=== PATIENT | female | born 1950 | race Caucasian/White ===

== ENCOUNTER 2016-10-26 05:44 | Day surgery (SDC) | payer MEDICARE ==
[2016-10-26] MEDS ORDERED: CEFAZOLIN SODIUM 2 GRAM PREMIX 100 ML IV PRN (05:45)
[2016-10-26] MEDS ORDERED: CEFAZOLIN SODIUM 2 GRAM PREMIX 100 ML IV ONE (06:03)
[2016-10-26] MEDS ORDERED: BUPIVACAINE 0.5% W/EPI SDV 30 ML VIAL ONE (06:31)
[2016-10-26] MEDS ORDERED: MIDAZOLAM HCL 1 MG/ML 2ML VIAL ONE (06:43)
[2016-10-26] MEDS ORDERED: FENTANYL 100 MCG/2 ML VIAL ONE ×2 (06:43→08:17)
[2016-10-26] MEDS ORDERED: PROPOFOL 20 ML IV ONE (06:47)
[2016-10-26] MEDS ORDERED: ONDANSETRON 4 MG/2ML 2 ML VIAL IV PRN ×2 (07:31→09:03)
[2016-10-26] MEDS ORDERED: NALOXONE HCL 0.4 MG/ML VIAL IV PRN (07:31)
[2016-10-26] MEDS ORDERED: PROMETHAZINE HCL 25 MG/ML VIAL IM PRN (07:31)
[2016-10-26] MEDS ORDERED: ATROPINE SULFATE 0.4 MG/1 ML VIAL IV PRN (07:31)
[2016-10-26] MEDS ORDERED: LACTATED RINGERS 1,000 ML IV SCH ×2 (07:45→09:03)
[2016-10-26] MEDS ORDERED: KETAMINE HCL UD SYRINGE 100 MG/2 ML IV ONE (07:51)
[2016-10-26] MEDS ORDERED: DEXAMETHASONE SOD PHOS 4 MG/1 ML VIAL ONE (07:51)
[2016-10-26] MEDS ORDERED: ONDANSETRON 4 MG/2ML 2 ML VIAL ONE ×2 (07:51→09:25)
[2016-10-26] MEDS ORDERED: KETOROLAC TROMETHAMINE 30 MG/ML 1 ML VIAL ONE (08:05)
[2016-10-26] MEDS: FENTANYL 100 MCG/2 ML VIAL IV PRN ×2 (08:18→08:24)
--- NOTE | 2016-10-26 08:21 | PCMBPN ---
Brief Post Op Note: Date of Procedure: 10/26/16 Start Time: 729 Preoperative Diagnosis: 1. Left Knee MMT Postoperative Diagnosis: 1. Left Knee MMT, Medial Femoral Condyle Grade 3 Chondromalacia Procedure: Left Knee Arthroscopy/PMM/Shaving Chondroplasty of Medial Femoral Condyle Surgeon: Perico Wagner MD Assist:MAGGIE Ramirez Anesthesia: Jluis Roberts CRNA Findings: See above Condition: Stable Complications: none IV Fluids: 700 mLs of LR Urine Output: 0 mLs Estimated Blood Loss: 5 mLs Tourniquet Time: 19min at 250mmHg Specimens: N/A Implants: None Drains: [N/A]
[2016-10-26] MEDS ORDERED: MORPHINE SULFATE 4 MG/ML SYRINGE ONE ×2 (08:33→08:50)
[2016-10-26] MEDS: MORPHINE SULFATE 4 MG/ML SYRINGE IV PRN ×4 (08:34→09:00)
--- NOTE | 2016-10-26 08:58 | HP ---
DATE OF CLINIC: 10/21/2016 FRANKLIN PACK : 1950 PLANNED PROCEDURE: Left Knee Arthroscopic Partial Medial Menisectomy DATE OF SURGERY: October 26, 2016 SURGEON: Perico Wagner M.D. HISTORY OF PRESENT ILLNESS Franklin Pack is a 66 year old female. * Medication list reviewed with patient allergy list reviewed with patient. 66-year-old female who is here to discuss left knee dysfunction that has been going on for over a year. She has pain over the medial side of her knee and mechanical symptoms whenever she is more active. She has been through a course of non-operative measures and hasn't found adequate relief. She has been seen by Dr. Merritt prior to this. At this point she complains primarily of anteromedial knee pain as well as some posteromedial knee pain when she goes into maximal flexion and difficulty with completing her desired activities. Past medical and surgical history are unchanged. After discussion and review of treatment options, both operative and non-operative, she has elected to proceed with surgery and presents today preoperatively. CURRENT MEDICATION * ALPRAZolam 0.5 MG Tablet take 1/2 to 1 tab daily as needed for anxiety, 30 days, 0 refills * Aspirin 81 MG Tablet Delayed Release 1 once a day 0 days, 0 refills * Calcium Antacid Extra Strength 750 MG Tablet Chewable 1 once a day 0 days, 0 refills * [facility] Glucosamine 1500 MG Tablet 1 once a day 0 days, 0 refills * [facility] Naproxen Sodium 220 MG Tablet 1 once a day 0 days, 0 refills * [facility] Vitamin D3 1000 UNIT Capsule 1 once a day 0 days, 0 refills * Fish Oil 1000 MG Capsule 1 once a day 0 days, 0 refills * Ibuprofen PM 200-38 MG Tablet as needed 0 days, 0 refills * Loratadine 10 MG Capsule 1 once a day 0 days, 0 refills * Montelukast Sodium Powder as directed 0 days, 0 refills * Multi Vitamin Tablet 1 once a day 0 days, 0 refills * Singulair 10 MG Tablet 1 once a day, 30 days, 5 refills PAST MEDICAL/SURGICAL HISTORY Reported: No recent change in medical history. Medical: Stomach problems, a fracture Left ankle fx, Reported numbness, Reported tingling, history of Arthritis, Depression, Anemia, and Rheumatoid Arthritis. Surgical / Procedural: Prior surgery Uterine Fibroid 1997, 2004, Appendectomy 1960?1964?, and Tonsilectomy 1951. Physical Trauma: A fall. Uterine fibroids removed 1998+2004? bartholin cyst removed 1997? 1989?. Surgical: * Tonsillectomy 1951 * Appendectomy 1959 SOCIAL HISTORY Behavioral: Daily coffee consumption 3 cups daily, former smoker quit 1992, and non-smoker quit smoking 1989 smoked 1 pack per day for 20 yrs. Smoking status: Former smoker. Alcohol: Alcohol 1 glass of wine daily and alcohol use. Home Environment: Lives with spouse and with and caring for family household member with alzheimers. Work: Occupation Retired. ALLERGIES * EPINEPHrine Reaction: makes heart race causes panic * Insect Bites/Stings * Minoxidil Reaction: Skin Rashes/Hives * Oxycodone (Intolerance) Reaction: Nausea/Vomiting/Diarrhea FAMILY HISTORY Father ill heart disease, cancer, diabetes Paternal: Acute myocardial infarction Diabetes mellitus Alcoholism Cancer liver, lung, colon Maternal: Alcoholism Cancer breast Family medical history Mother- Cancer Father- Diabetes, Cancer REVIEW OF SYSTEMS No recent constitutional symptoms to include fevers and chills. No recent cardiovascular symptoms to include chest pain or palpitations. No recent respiratory symptoms to include shortness of breath or recent infections. PHYSICAL FINDINGS * Vitals taken 10/21/2016 09:54 am BP-Sitting L 115/77 mmHg BP Cuff Size Regular Pulse Rate-Sitting 80 bpm Temp-Oral 98.1 F Height 66 in Weight 202 lbs Body Mass Index 32.6 kg/m2 Body Surface Area 2.01 m2 Pain Level 3 Ears, Nose, Throat: * ENT: normal. Lungs: * Clear to auscultation. Cardiovascular: Heart Rate and Rhythm: * Normal. Abdomen: * Normal. Neurological: Motor: * Dominant Hand = Right Hand. Patient is a well-developed, well-nourished female in no acute distress. She is awake, alert and conversant throughout the encounter. CARDIOVASCULAR: Intact peripheral pulses on bilateral lower extremities. No significant edema on inspection of bilateral lower extremities. NEUROLOGIC: Patient had intact coordinated composite motion of the bilateral lower extremities and sensation intact to light touch in all distributions of bilateral lower extremities. PSYCHIATRIC: Patient was oriented to person, place and time and displayed appropriate mood and affect during the encounter. SKIN: Exam of the skin on bilateral lower extremities showed no significant scars, lesions, rashes or masses. FOCUSED MUSCULOSKELETAL EXAM: Patient is ambulating with mild antalgia on the left side. Normal resting station of the hips, knees and ankles. Her left knee shows no effusion, no erythema, no ecchymosis. She has tenderness to palpation along the medial jointline both anteriorly and posteriorly. She has a positive patellar grind. The patella is stable and tracks to the midline. She is stable to anterior and posterior drawer and Parker as well as a pivot shift. She has some mild valgus pseudolaxity. She is stable to varus stress. She can perform a SLR and has 5/5 strength at flexion and extension at the knee. She has a warm and well perfused leg distally with intact sensation and normal resting tone. IMAGING X-rays show some very mild medial compartment narrowing without significant osteophyte formation. She has a midline patella. She has an MRI that demonstrates a tear in the posterior horn of her medial meniscus. ASSESSMENT 66-year-old female with left knee medial meniscus tear. PREVIOUS TESTS * Test: BASIC METABOLIC PROFILE Report Date: 09/30/2016 BUN 20 mg/dL BUN/CREAT RATIO 18 CALCIUM 9.6 mg/dL GLUCOSE 98 mg/dL CREATININE 1.1 mg/dL SODIUM 141 meq/L POTASSIUM 4.8 meq/L CHLORIDE 104 meq/L CARBON DIOXIDE 30 meq/L ANION GAP 12 meq/L GFR 50 Low * Test: LIPID PROFILE Report Date: 09/30/2016 LDL CHOLESTEROL 131 mg/dL High HDL CHOLESTEROL 61 mg/dL VLDL CHOL 32 mg/dL CHOLESTEROL 224 mg/dL High TRIGLYCERIDES 160 mg/dL High RISK RATIO 3.7 THERAPY * Patient fall risk screen negative. * Patient eligible for fall risk assessment. * Patient received fall risk assessment. PLAN * Derang of post horn of medial mensc d/t old tear/inj, l knee Percocet 5-325 MG TABS, Take 1-2 tablets every 4 hours as needed for pain, 14 days, 0 refills Darden 5-325 MG TABS, 1 every 4 - 6 hours as needed, 14 days, 0 refills * Knee Arthroscopy (Left) with PMM CARE TEAM AGUS [facility] SURGICAL CONSENT We have discussed surgical options including left knee arthroscopic PMM and non-operative management. The patient was counseled in detail regarding the diagnosis, treatment options available, prognosis of each treatment option and the potential risks and complications. The risks of surgery include, but are not limited to, anesthetic , neurovascular complications, pulmonary embolism, deep vein thrombosis, wound dehiscence, failure of any or all of the discussed procedures, infection of the joint or surrounding soft tissue, need for revision surgery, chronic pain, limitations in activities of daily living, inability to return to work, and loss of normal range of motion or functional use of the extremity. There is the possibility of failure over time that may require additional operative or non-operative treatment. The patient acknowledged that there are a number of perioperative risks not mentioned here and would still like to proceed. The patient is aware of and understands these risks, and wishes to proceed with the proposed surgical procedure and other procedures as indicated at the time of surgery. We will have the patient see their PCP for a preoperative medical risk assessment. The preoperative instructions were reviewed with the patient and all questions were answered. PB/sg
[2016-10-26] MEDS ORDERED: HYDROMORPHONE HCL 1 MG/ML SYRINGE IV PRN (09:03)
[2016-10-26] MEDS ORDERED: HYDROCODONE/ACETAMINOPHEN 5/325MG TABLET PO PRN (09:03)
[2016-10-26] MEDS ORDERED: DIPHENHYDRAMINE HCL 50 MG/1 ML VIAL IV PRN (09:03)
[2016-10-26] MEDS ORDERED: ACETAMINOPHEN 325 MG TABLET PO PRN (09:03)
[2016-10-26] MEDS ORDERED: HYDROMORPHONE HCL 0.5 MG/0.5 ML SYRINGE IV PRN (09:12)
[2016-10-26] MEDS ORDERED: PROMETHAZINE HCL 25 MG/ML VIAL IM ONE (11:50)
--- NOTE | 2016-10-26 14:12 | OP ---
Chante KIM : 1950 [id number] DATE OF PROCEDURE: October 26, 2016 PREOPERATIVE DIAGNOSIS: Left knee medial meniscus tear. POSTOPERATIVE DIAGNOSES: Left knee medial meniscus tear and grade 3 chondromalacia of the medial femoral condyle. PROCEDURE PERFORMED: LEFT KNEE ARTHROSCOPY WITH PARTIAL MEDIAL MENISCECTOMY AND CHONDROPLASTY OF THE MEDIAL FEMORAL CONDYLE. SURGEON: Perico Wagner M.D. CARE DIRECTOR: Romario Holland P.A.-C. ANESTHESIA: Jluis Roberts C.R.N.A. SPECIMENS: No material was sent to the laboratory. ESTIMATED BLOOD LOSS: 5 mL FLUIDS REPLACED: 700 mL of crystalloid. TOURNIQUET TIME: 19 minutes at 250 mmHg. URINE OUTPUT: None. IMPLANTS: None. DRAINS: No drains. INDICATIONS: This is a [id number] female who complains of pain and mechanical symptoms in the left knee that have been increasing over time and have not responded to a course of nonoperative measures. Patient has an exam and imaging studies which are consistent with the above. Given failure to improve with nonoperative measures patient was consented for C left knee arthroscopy with partial medial meniscectomy and chondroplasty of the medial femoral condyle. The risks, benefits and alternatives were discussed at length with that patient and they elected to proceed with surgery. Informed consent was obtained and documented in the chart and the patient was placed on the schedule the first available convenience. DESCRIPTION OF PROCEDURE: The patient was identified in the preoperative holding area where they were marked with an indelible marker by the operating surgeon. Patient was taken to the operating room where they were placed in the supine position the operating room table. A general anesthesia was induced, perioperative antibiotics were administered and a well padded pre-calibrated nonsterile tourniquet was placed on the left upper thigh. Patient was prepped and draped in the usual sterile fashion for surgery. An operative time out was performed and confirmed by all members of the operative team confirming the patient identity, procedure to be performed and the laterally for that procedure. All necessary personnel, equipment and implants were in place and there were no safety concerns. The leg was elevated and exsanguinated using the Esmarch bandage and the tourniquet was inflated to 250 mmHg. A standard lateral portal was created and the 30 degree viewing arthroscope was inserted into the knee. Optics were directed anteromedially and a medial portal was localized and created in a standard fashion. A probe was inserted through this medial portal and used in completion of the diagnostic arthroscopy with the following findings: 1) No loose bodies in the medial or lateral gutters. 2) The medial meniscus had some fraying and a small bird beak tear of the posterior horn. 3) The medial femoral condyle showed grade 3 chondromalacia changes with a loose flap of cartilage in the anterior lateral portion of the medial femoral condyle distally. 4) The ACL and PCL were intact. 5) Lateral femoral condyle and the lateral tibial plateau were intact. 6) The lateral meniscus showed some minor fraying in the posterior horn. 7) There was hypertrophy of the anterior fat pad. 8) There were no loose bodies in the suprapatellar pouch. 9) The patellofemoral joint was intact. After completion of diagnostic arthroscopy the probe was exchanged for an arthroscopic resector shaver which was used to complete the partial medial meniscectomy and a shaving chondroplasty of the medial femoral condyle. At this point we felt that we had addressed the patient's intra-articular pathology and so the camera and instruments were removed from the knee. The portal sites were closed with #4-0 Nylons; 20 mL of 0.5% Marcaine was injected into the knee for perioperative analgesia. A sterile dressing of Xeroform, fluffs, ABDs, web roll and then an CHIOMA bandage from ankle to the thigh was applied. The tourniquet was deflated, the drapes were removed. The patient was awakened from anesthesia and extubated in the operating room without difficulty. Patient was transferred to a stretcher and taken postoperatively to the post anesthesia care unit in stable condition. There were no observed intraoperative complications during this procedure. Job [id number] Cc: [facility]
== END 2016-10-26 13:18 | disposition home or self-care (01) ==
LOC: SDC 05:44
PROVIDERS: ATTEND Orthopaedic Surgery
DX: M23.222 Derangement of posterior horn of medial meniscus due to old tear or injury, left knee (principal); E78.00 Pure hypercholesterolemia, unspecified; M06.9 Rheumatoid arthritis, unspecified; Z87.891 Personal history of nicotine dependence; Z79.82 Long term (current) use of aspirin; M94.262 Chondromalacia, left knee
CPT/HCPCS: 29881; J3010 ×2; J1100; J2270 ×2; J2550; J1885; J2250; J2405 ×2; J0690